=== PATIENT | male | born 1960 | race Caucasian/White ===

== ENCOUNTER 2018-08-10 08:38 | Emergency (ER) | payer SELFPAY ==
[~2018-08-10] VITALS: Ht 175.3 cm; Wt 82.3 kg
[~2018-08-10 08:38] MED LIST: CLON0.5T20 PO
[2018-08-10 10:55] VITALS: BP 127/84
[2018-08-10] MEDS ORDERED: OXYcodone/APAP 5/325MG TABLET ONE (11:16)
[2018-08-10] MEDS ORDERED: OXYcodone/APAP 5/325MG TABLET PO ONE (11:30)
== END 2018-08-10 11:29 | disposition home or self-care (01) ==
LOC: ED 09:20
DX: S22.41XA Multiple fractures of ribs, right side, initial encounter for closed fracture (principal); F41.9 Anxiety disorder, unspecified; F17.200 Nicotine dependence, unspecified, uncomplicated; W01.0XXA Fall on same level from slipping, tripping and stumbling without subsequent striking against object, initial encounter; Y93.89 Activity, other specified; Y92.89 Other specified places as the place of occurrence of the external cause; Y99.8 Other external cause status
CPT/HCPCS: 99284

== ENCOUNTER 2019-02-07 17:03 | Inpatient (IN) | payer MEDICAID ==
[~2019-02-07] VITALS: Ht 175.3 cm; Wt 92.4 kg
--- NOTE | 2019-02-07 18:00 | NUR ---
PT RESTING IN [facility], REPORT TO BREAK RN. AWAITING LAB RESULTS
[2019-02-07 18:19] LABS: BASOPHILS # (AUTO) 0.04 x10^3/uL (0-0.1); BASOPHILS % (AUTO) 0 % (0-1); EOSINOPHILS # (AUTO) 0.16 x10^3/uL (0-0.4); EOSINOPHILS % (AUTO) 1 % (1-7); LYMPHOCYTES # (AUTO) 1.63 x10^3/uL (1-3.4); LYMPHOCYTES % (AUTO) 14 % (22-44); MD NO; MEAN CORPUSCULAR HGB CONC 34.1 g/dL (33.2-36.2); MEAN CORPUSCULAR VOLUME 99.7 fL (81-97); MEAN PLATELET VOLUME 9.5 fL (7.4-10.4); MONOCYTES # (AUTO) 0.62 x10^3/uL (0.2-0.8); MONOCYTES % (AUTO) 5 % (2-9); NEUTROPHILS # (AUTO) 9.06 x10^3/uL (1.8-6.8); NEUTROPHILS % (AUTO) 79 % (42-75); PLATELET COUNT 216 x10^3/uL (130-400); RED BLOOD COUNT 4.96 x10^6/uL (4.38-5.82); RED CELL DISTRIBUTION WIDTH 13.3 % (9.4-14.8)
[2019-02-07 18:32] LABS: ALANINE AMINOTRANSFERASE 23 U/L (12-78); ALBUMIN 4.2 g/dL (3.4-5.0); ANION GAP 7 mmol/L (5-15); CALCIUM 8.4 mg/dL (8.5-10.1); CHLORIDE 110 mmol/L (98-107); CREATININE 1.25 mg/dL (0.7-1.3)
[2019-02-07 18:34] LABS: ALKALINE PHOSPHATASE 103 U/L (45-117); BILIRUBIN,TOTAL 0.2 mg/dL (0.2-1.0)
--- NOTE | 2019-02-07 18:59 | NUR ---
PT GIVEN URINAL, AWAITING SOME LAB RESULTS STILL. PER MD TBADM. FAMILY AT BEDSIDE
[2019-02-07] MEDS ORDERED: LORazepam 2 MG/ML, 1ML IV PRN ×2 (19:30)
[2019-02-07] MEDS ORDERED: ACETAMINOPHEN 325 MG TABLET PO PRN (19:30)
[2019-02-07] MEDS ORDERED: ALBUTEROL/IPRATROPIUM 2.5MG/0.5MG, 3 ML HHN PRN (19:30)
[2019-02-07] MEDS ORDERED: ONDANSETRON 2MG/ML, 2ML IVPush PRN (19:30)
[2019-02-07] MEDS ORDERED: PIPERACILLIN/TAZO/PMX 3.375GM 50 ML IV ONE (19:30)
[2019-02-07] MEDS ORDERED: CLINDAMYCIN PMX 600MG/50ML 50 ML IV SCH (19:30)
[2019-02-07] MEDS ORDERED: FOLIC ACID 5 MG/ML IM ONE (19:30)
[2019-02-07] MEDS ORDERED: PIPERACILLIN/TAZO/PMX 3.375GM 50 ML ONE (19:45)
[2019-02-07 20:03] LABS: AMPHETAMINE SCREEN, URINE Negative (Negative); BARBITURATE SCREEN, URINE Negative (Negative); BENZODIAZEPINE SCREEN, URINE Positive (Negative); CANNABINOID SCREEN, URINE Negative (Negative); COCAINE SCREEN, URINE Negative (Negative); METHADONE SCREEN, URINE Negative (Negative); OPIATE SCREEN, URINE Negative (Negative)
--- NOTE | 2019-02-07 20:03 | NUR ---
REPORT TO IVAN SARAVIA
[2019-02-07] MEDS ORDERED: FOLIC ACID 1 MG TABLET PO ONE (20:37)
[2019-02-07 21:06] VITALS: BP 147/96
[2019-02-07] MEDS ORDERED: DIAZ10TA4 PO (23:32)
[2019-02-08 01:43] VITALS: BP 113/71
[2019-02-08 04:38] LABS: BASOPHILS # (AUTO) 0.04 x10^3/uL (0-0.1); BASOPHILS % (AUTO) 0 % (0-1); EOSINOPHILS # (AUTO) 0.29 x10^3/uL (0-0.4); EOSINOPHILS % (AUTO) 3 % (1-7); LYMPHOCYTES # (AUTO) 2.07 x10^3/uL (1-3.4); LYMPHOCYTES % (AUTO) 19 % (22-44); MD NO; MEAN CORPUSCULAR HGB CONC 34.4 g/dL (33.2-36.2); MEAN CORPUSCULAR VOLUME 98.9 fL (81-97); MEAN PLATELET VOLUME 9.9 fL (7.4-10.4); MONOCYTES % (AUTO) 8 % (2-9); NEUTROPHILS # (AUTO) 7.86 x10^3/uL (1.8-6.8); NEUTROPHILS % (AUTO) 70 % (42-75); PLATELET COUNT 224 x10^3/uL (130-400); RED BLOOD COUNT 4.64 x10^6/uL (4.38-5.82); RED CELL DISTRIBUTION WIDTH 13.7 % (9.4-14.8)
[2019-02-08 04:49] LABS: ANION GAP 8 mmol/L (5-15); CALCIUM 8.3 mg/dL (8.5-10.1); CHLORIDE 112 mmol/L (98-107)
[2019-02-08 04:52] LABS: CREATININE 1.16 mg/dL (0.7-1.3)
[2019-02-08] MEDS ORDERED: CLINDAMYCIN PMX 600MG/50ML 50 ML IV SCH (06:00)
[2019-02-08 07:08] VITALS: BP 100/69
[2019-02-08] MEDS: THIAMINE 100MG TABLET PO SCH (10:38)
[2019-02-08] MEDS: MULTIVITAMINS/MINERALS TABLET PO SCH (10:39)
[2019-02-08] MEDS: AMPICILLIN/SULBACTAM 3 GM in SODIUM CHLORIDE 0.9% 100 ML IV SCH ×3 (10:39→20:56)
[2019-02-08] MEDS: FOLIC ACID 1 MG TABLET PO SCH (12:50)
[2019-02-08] MEDS ORDERED: LORazepam 1MG TABLET PO PRN ×4 (13:00)
[2019-02-08] MEDS ORDERED: LORazepam 2 MG/ML, 1ML IV PRN ×5 (13:00)
[2019-02-08 13:25] VITALS: BP 102/67
[2019-02-08 16:49] LABS: MICROSCOPIC AUTO
[2019-02-08] MEDS ORDERED: ERGOCALCIFEROL 50,000 UNIT CAPSULE PO SCH (17:00)
[2019-02-08 17:01] LABS: CULTURE INDICATED? NO
[2019-02-08 19:26] VITALS: BP 117/70
[2019-02-08] MEDS: LORazepam 0.5MG TABLET PO PRN (20:56)
[2019-02-09 00:43] VITALS: BP 126/78
[2019-02-09] MEDS: AMPICILLIN/SULBACTAM 3 GM in SODIUM CHLORIDE 0.9% 100 ML IV SCH ×3 (03:51→15:07)
[2019-02-09] MEDS: LORazepam 0.5MG TABLET PO PRN ×3 (03:56→12:11)
[2019-02-09 05:03] LABS: BASOPHILS # (AUTO) 0.07 x10^3/uL (0-0.1); BASOPHILS % (AUTO) 1 % (0-1); EOSINOPHILS # (AUTO) 0.55 x10^3/uL (0-0.4); EOSINOPHILS % (AUTO) 7 % (1-7); LYMPHOCYTES % (AUTO) 31 % (22-44); MD NO; MEAN CORPUSCULAR HEMOGLOBIN 33.9 pg (27.5-34.5); MEAN CORPUSCULAR VOLUME 99.5 fL (81-97); MEAN PLATELET VOLUME 9.5 fL (7.4-10.4); MONOCYTES # (AUTO) 0.73 x10^3/uL (0.2-0.8); MONOCYTES % (AUTO) 9 % (2-9); NEUTROPHILS % (AUTO) 53 % (42-75); PLATELET COUNT 161 x10^3/uL (130-400); RED CELL DISTRIBUTION WIDTH 13.2 % (9.4-14.8)
[2019-02-09 05:04] LABS: ANION GAP 8 mmol/L (5-15); CALCIUM 8.2 mg/dL (8.5-10.1); CHLORIDE 103 mmol/L (98-107)
[2019-02-09 05:05] LABS: CREATININE 1.11 mg/dL (0.7-1.3)
[2019-02-09 07:25] VITALS: BP 119/80
[2019-02-09] MEDS: FOLIC ACID 1 MG TABLET PO SCH (08:09)
[2019-02-09] MEDS: THIAMINE 100MG TABLET PO SCH (08:09)
[2019-02-09] MEDS: MULTIVITAMINS/MINERALS TABLET PO SCH (08:09)
[2019-02-09] MEDS ORDERED: THIAMINE 100 MG in DEXTROSE 5% 50 ML IVPB SCH (09:00)
[2019-02-09] MEDS ORDERED: THIA100T67 PO (14:10)
[2019-02-09] MEDS ORDERED: FOLI-17 PO (14:10)
[2019-02-09] MEDS ORDERED: MULT-516 PO (14:10)
[2019-02-09] MEDS ORDERED: ERGO500017 PO (14:10)
[2019-02-09] MEDS ORDERED: AMOX1TAB64 PO (14:10)
== END 2019-02-09 15:16 | disposition home or self-care (01) | DRG 178 ==
LOC: ED 18:50 → EDIP 19:08 → 4WST 20:30
PROVIDERS: ADMIT Internal Medicine; ATTEND Internal Medicine
DX: J69.0 Pneumonitis due to inhalation of food and vomit (principal); E87.2 Acidosis; F10.239 Alcohol dependence with withdrawal, unspecified; E55.9 Vitamin D deficiency, unspecified; F10.229 Alcohol dependence with intoxication, unspecified; F17.200 Nicotine dependence, unspecified, uncomplicated; F32.9 Major depressive disorder, single episode, unspecified; F41.9 Anxiety disorder, unspecified; S00.12XA Contusion of left eyelid and periocular area, initial encounter; Y90.8 Blood alcohol level of 240 mg/100 ml or more; W18.30XA Fall on same level, unspecified, initial encounter; Y93.89 Activity, other specified; Y92.098 Other place in other non-institutional residence as the place of occurrence of the external cause; Y99.8 Other external cause status
CPT/HCPCS: 36415; 70450; 71045; 80048; 80053; 80307; 81001; 82140; 82306; 82607; 83605; 83690; 83735; 84100; 85025; 87040; G0378; J0295; J2543; J2060